=== PATIENT | male | born 1985 | race Caucasian/White ===

== ENCOUNTER 2023-12-08 18:59 | Emergency (ER) | payer BC ==
[~2023-12-08] VITALS: Ht 170.2 cm; Wt 73.0 kg
[2023-12-08 19:02] VITALS: O2SAT 100
[2023-12-08 20:33] VITALS: BP 115/83; PULSE 80; RESP 12; TEMP 98.2
[2023-12-08] MEDS ORDERED: BENZ1TAB79 MT (21:40)
== END 2023-12-09 01:40 | disposition home or self-care (01) ==
LOC: ER 18:59
DX: G24.9 Dystonia, unspecified (principal)
CPT/HCPCS: 99283